=== PATIENT | male | born 1985 ===

== ENCOUNTER 2021-04-27 06:48 | Day surgery (SDC) | payer OTHER ==
[2021-04-27] MEDS ORDERED: TRAMADOL HCL50 MG PO (13:36)
== END 2021-04-27 18:10 | disposition home or self-care (01) ==
LOC: CIR.AMB 06:48
PROVIDERS: ATTEND Surgery
DX: N50.0 Atrophy of testis (principal); Q53.112 Unilateral inguinal testis; Q53.10 Unspecified undescended testicle, unilateral; N44.8 Other noninflammatory disorders of the testis; J45.909 Unspecified asthma, uncomplicated

== ENCOUNTER 2021-08-24 05:38 | Day surgery (SDC) | payer OTHER ==
[~2021-08-24 05:38] MED LIST: TRAMADOL HCL50 MG PO
[2021-08-24] MEDS ORDERED: ULTRAM50 MG PO (08:55)
== END 2021-08-24 15:05 | disposition home or self-care (01) ==
LOC: CIR.AMB 05:38
PROVIDERS: ATTEND Surgery
DX: N48.6 Induration penis plastica (principal); Z20.822 Contact with and (suspected) exposure to COVID-19; E66.9 Obesity, unspecified